=== PATIENT | male | born 1940 | race Caucasian/White ===

== ENCOUNTER 2016-11-22 07:16 | Inpatient (IN) | payer OTHER, SELFPAY ==
[2016-11-18 17:39] LABS: HEMATOCRIT 33.9 % (40.0-51.0); HEMOGLOBIN 11.1 g/dL (13.6-17.8)
[2016-11-18 17:49] LABS: CALCIUM, SERUM 8.6 MG/DL (8.5-10.4); CHLORIDE, SERUM 104 MMOL/L (96-112); CO2 (CARBON DIOXIDE) 28 MMOL/L (24-34); CREATININE 1.69 MG/DL (0.70-1.30); GFR AFRICAN AMERICAN 44 ML/MIN (>=60); GFR NON AFRICAN AMERICAN 38 ML/MIN (>=60); GLUCOSE, SERUM 111 MG/DL (60-99); SODIUM, SERUM 141 MMOL/L (135-148)
[2016-11-18 17:50] LABS: BUN (BLOOD UREA NITROGEN) 29 MG/DL (6-23); POTASSIUM, SERUM 5.3 MMOL/L (3.5-5.3)
--- NOTE | ~2016-11-22 | OP ---
Record Of Operation [facility] [address] [place]. [address] NAME: SHADI CERVANTES : 38 STATUS : ADM IN PAT#: [id number] AGE: 76 ADM/REG DATE : 11/22/16 MR#: [id number] REPORT SERV DATE: 11/22/16 DICTATED BY: CÉSAR JONES JR. DATE: 11/22/16 REPORT STATUS : Draft TRANSCRIBED BY: MODL DATE: 11/22/16 DATE OF PROCEDURE: 11/22/2016 PREOPERATIVE DIAGNOSIS: Right carotid stenosis, previous right hemispheric stroke. POSTOPERATIVE DIAGNOSIS: Right carotid stenosis, previous right hemispheric stroke. OPERATION: Right carotid endarterectomy with bovine patch angioplasty. SURGEON: César Jones M.D. HISTORY: This is a 76-year-old, white male, who has been followed in my office for bilateral carotid disease. He was found to have a progressive right carotid stenosis that had reached the 70% threshold. In the remote past, he has had a previous right hemispheric CVA. PROCEDURE IN DETAIL: The patient was placed on the operating table. Underwent general endotracheal anesthetic. Right side of the neck was prepped and draped in the usual sterile manner. A standard right-sided sternocleidomastoid incision was made. Dissection was carried out at the facial vein, which was clamped, cut, and tied. The underlying carotid bifurcation was seen underneath this. The patient was heparinized early with 4000 units of heparin trying to prevent potential embolization. All branches of carotid artery were dissected out away from the bifurcation and try to prevent embolization. All branches of carotid artery were then clamped. Arteriotomy was then done between the CCA and the ICA. I had to go up relatively high on the ICA to get above the maximum plaque. 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 I was concerned that a shunt might embolize this debris. With the patient having reasonable backbleeding, I felt that a shunt would probably not be indicated. The endarterectomy started in the area of the CCA, was extended up to the ECA and then to the ICA. The plaque feathered nicely in both distal locations. Fine forceps were used to get all smooth muscle floaters. I elected to patch the bifurcation open using a piece of bovine pericardial patch material sewn in place as an onlay patch using 6-0 running suture. The artery was bled antegrade and retrograde before finishing the suture line with no clots being seen. The clamps were removed. Blood was allowed to run up into the ECA first. The heparin was not reversed. A drain was placed and brought out inferiorly. The neck was closed in layers with 3-0 Vicryl and 4-0 Vicryl on the skin. The patient tolerated the procedure well and taken back to recovery room in fair condition. There were no intraoperative complications. ESTIMATED BLOOD LOSS: 250 mL. DF/MODL César Record Of [address] [address] NAME: SHADI CERVANTES : 38 STATUS : ADM IN [facility]#: [id number] AGE: 76 ADM/REG DATE : 11/22/16 MR#: [id number] REPORT SERV DATE: 11/22/16 DICTATED BY: CÉSAR JONES JR. DATE: 11/22/16 REPORT STATUS : Draft TRANSCRIBED BY: MODL DATE: 11/22/16 Robert Victoria M.D. / [id number] CC: Stephane Chappell Jr., Jr., M.D.
[~2016-11-22 07:16] MED LIST: AMARYL1 MG PO; ASA5GR PO; ASAB PO; COREG25 PO; DIABETA5 PO; GLUCPH PO; LYRICA150 MG PO; LYRICA50 PO; NITROII20C TOP; NORV10 PO; PLAVIX PO; PRAVACHOL40 MG PO; PRIN10 PO; PROTONIX PO; T PO; ULTRAM50 PO
[2017-06-01] MEDS ORDERED: VITAMIN D31000 UNIT PO (10:09)
[2017-06-02] MEDS ORDERED: VITAMIN B-121000 MC1 SL (07:16)
[2017-06-02] MEDS ORDERED: IRON PO (07:17)
== END 2016-11-23 11:50 | disposition home or self-care (01) | DRG 39 ==
LOC: SDC/OF 07:16 → PACU 11:16 → 2SO 15:19
PROVIDERS: Surgery
PROC: 03CK0ZZ Extirpation of Matter from Right Internal Carotid Artery, Open Approach (ICD-10-PCS; principal; 2016-11-22 09:15)
DX: I65.23 Occlusion and stenosis of bilateral carotid arteries (principal); E11.9 Type 2 diabetes mellitus without complications; I10 Essential (primary) hypertension; I25.10 Atherosclerotic heart disease of native coronary artery without angina pectoris; I65.09 Occlusion and stenosis of unspecified vertebral artery; E78.5 Hyperlipidemia, unspecified; I73.9 Peripheral vascular disease, unspecified; Z95.1 Presence of aortocoronary bypass graft; Z86.73 Personal history of transient ischemic attack (TIA), and cerebral infarction without residual deficits; Z89.512 Acquired absence of left leg below knee
CPT/HCPCS: 80048; 82962; 85014; 85018; 87641; 88304; 88311; 93005; A9270-GY; C1768; J0360; J0690; J2250; J2370; J2405; J2710; J3010